=== PATIENT | male | born 1995 | race African-American/Black ===

== ENCOUNTER 2021-09-20 13:15 | Emergency (ER) | payer BC ==
[~2021-09-20] VITALS: Ht 175.3 cm; Wt 89.0 kg
[2021-09-20 13:34] VITALS: BP 128/77
== END 2021-09-20 20:04 | disposition home or self-care (01) ==
LOC: ER 13:15
DX: R07.89 Other chest pain (principal); R00.0 Tachycardia, unspecified
CPT/HCPCS: 71046; 99283